=== PATIENT | male | born 1980 | race Caucasian/White ===

== ENCOUNTER → 2018-01-06 | Outpatient (REF) | payer SELFPAY | LOC: M LAB REF 17:57 | DX: D17.0 Benign lipomatous neoplasm of skin and subcutaneous tissue of head, face and neck (principal) ==

== ENCOUNTER → 2024-01-22 | Outpatient (REF) | payer OTHER, SELFPAY | LOC: M SFHCDERM 18:01 | PROVIDERS: ATTEND Physician Assistant | DX: D48.9 Neoplasm of uncertain behavior, unspecified (principal) ==